=== PATIENT | male | born 1985 | race Caucasian/White ===

== ENCOUNTER 2019-04-22 15:40 | Emergency (ER) | payer OTHER, SELFPAY ==
--- NOTE | ~2019-04-22 | XR_ITS ---
EXAMINATION: XR chest 2V 04/22/2019 16:10 INDICATION: Right-sided chest pain PROCEDURE: 2 view chest COMPARISON: No prior studies for comparison. FINDINGS: The lungs are clear. The cardiomediastinal silhouette is within normal limits. There are no pleural effusions. There is no pneumothorax suspected. IMPRESSION: 1: NO ACUTE CARDIOPULMONARY DISEASE. Reviewed, dictated and finalized at [facility]. Reviewed, dictated and finalized at location [facility]. [facility]
--- NOTE | 2019-04-22 15:47 | ECG_ITS ---
Measurements Intervals [place] Rate: 60 P: 43 UT: 151 QRS: 5 QRSD: 104 T: -9 QT: 377 QTc: 379 Interpretive Statements SINUS RHYTHM WITH SINUS ARRHYTHMIA BORDERLINE ST-T WAVE ABNORMALITY- INFERIOR LEADS BORDERLINE ECG Electronically Signed On 04-22-2019 18:37:04 DIRECTOR PACKAGING by Lavelle Shelton D.O.
[2019-04-22 15:53] VITALS: BP 118/70; PULSE 69; RESP 16; TEMP 36.8; O2SAT 100
[2019-04-22 16:09] LABS: Basophils Absolute Auto 0.1 K/mm3 (0.0-0.1); Basophils Percent Auto 0.9 % (0.2-1.2); Eosinophils Absolute Auto 0.2 K/mm3 (0-0.3); Eosinophils Percent Auto 2.9 % (0-4.4); Hematocrit 44.2 % (42.0-52.0); Immature Granulocyte Absolute 0.03 K/mm3 (0.00-0.031); Immature Granulocyte Percent A 0.4 % (0-0.5); Lymphocytes Percent Auto 46.8 % (18.3-44.2); Mean Corpuscular HGB Conc 33.9 g/dl (32-36); Mean Corpuscular Hemoglobin 28.2 pg (26-34); Mean Corpuscular Volume 83.2 fl (80-100); Mean Platelet Volume 10.7 fl (7.4-10.4); Monocytes Absolute Auto 0.6 K/mm3 (0.1-0.6); Monocytes Percent Auto 8.3 % (2.6-8.5); Neutrophils Absolute Auto 3.1 K/mm3 (1.3-6.7); Neutrophils Percent Auto 40.7 % (45.5-73.1); Platelet Count Result 300 k/mm3 (150-375); Red Blood Count 5.31 M/mm3 (4.6-6.20); Red Cell Distribution Width 11.6 % (11.5-14.5); White Blood Count 7.7 K/mm3 (4.5-10.0)
[2019-04-22 16:17] LABS: Prothrombin Time 12.6 Seconds (11.1-14.7)
[2019-04-22 16:18] LABS: Partial Thromboplastin Time 27.1 SECONDS (22.3-36.8)
[2019-04-22 16:22] LABS: Blood Urea Nitrogen 15 mg/dL (9-20); Calcium 9.6 mg/dL (8.4-10.2); Carbon Dioxide 27 mmol/L (22-30); Chloride 99 mmol/L (98-107); Estimated CRCL calculation 121 ml/min; Estimated Glomerular Filt Rate > 60; Glucose 93 mg/dL (75-110); Sodium 137 mmol/L (137-145)
[2019-04-22 16:34] LABS: Troponin I < 0.012 ng/mL (0.000-0.034)
[2019-04-22 16:40] VITALS: BP 140/85; PULSE 64; RESP 20; O2SAT 100
--- NOTE | 2019-04-22 18:14 | ED.CHESTPAIN ---
HPI - Chest Pain General Chief Complaint: Chest Pain Stated Complaint: CP Time Seen by Provider: 04/22/19 17:51 Source: patient and RN notes reviewed Mode of arrival: ambulatory Limitations: no limitations History of Present Illness HPI narrative: Pt is a 34 y/o male who presents to the ED with c/o rt sided chest pain starting around 10:30 AM this morning. He notes that he has a Hx of sleep apnea, and states that he uses a CPAP at night. Pt notes that he developed pain in the rt side of his chest shortly after taking a deep breath and stretching this morning. He describes his pain as dull, and notes that deep breathing aggravates his pain. Pt states that his pain has alleviated since it first began, and currently rates his pain at 1/10. He denies any cough, SOB, diaphoresis, fever, or other symptoms. MD complaint: chest pain Onset (ago): hour(s) (7) Onset: during rest Pain location: right chest Pain scale (0-10): 1 Quality: dull Exacerbating factors: other (deep breathing) Associated symptoms: other (none) Related Data Home Medications Medication Instructions Recorded Confirmed No Home Medications 04/22/19 04/22/19 Allergies Allergy/AdvReac Type Severity Reaction Status Date / Time No Known Allergies Allergy Verified 04/22/19 16:38 Review of Systems Review of Systems: All systems reviewed & are unremarkable except as noted in HPI and below Constitutional: Constitutional: Denies chills, Denies fever(s), Denies headache(s) and Denies weakness Cardiovascular: Cardiovascular: Reports chest pain (rt sided chest pain) and Denies diaphoresis Respiratory: Respiratory: Denies cough and Denies dyspnea Gastrointestinal: Gastrointestinal: Denies abdominal pain, Denies diarrhea, Denies nausea and Denies vomiting PMFSH Past Medical History Medical History Sleep apnea uses CPAP at night Surgical History Surgical History No significant past surgical history Family History Family History (Updated 12/20/17 @ 11:56 by DOCTOR UNKNOWN) Grandparent Family history of coronary artery disease Social History Social History Smoking status: Never smoker Alcohol intake: never Gender identity (if verbalized by the patient): Male Exam Const: General: no acute distress and well developed Orientation/consciousness: oriented to person, oriented to place, oriented to time and patient oriented x3 HENMT: Head: normocephalic Chest: Chest palpation & inspection: normal inspection of the chest and no tenderness Resp: Effort & Inspection: normal respiratory effort Auscultation: clear to auscultation bilaterally Cardio: Rate: regular rate Rhythm: regular rhythm GI: GI Palp: No abdominal tenderness and Yes Soft to palpation Skin: General skin exam: normal color and turgor normal Neuro: General: oriented to person, oriented to place, oriented to time and patient oriented x3 Cognition (Neuro): normal cognition Extrem: General: normal to inspection, full ROM and no pedal edema Psych: Appearance: grossly normal Mental Status: mental status grossly normal Affect: normal affect Course Vital Signs Vital signs: Vital Signs Temperature 36.8 C 04/22/19 15:53 Pulse Rate 69 04/22/19 15:53 Respiratory Rate 16 04/22/19 15:53 Blood Pressure 118/70 04/22/19 15:53 Pulse Oximetry 100 04/22/19 15:53 Temperature 36.8 C 04/22/19 15:53 Pulse Rate 75 04/22/19 19:26 Respiratory Rate 21 H 04/22/19 19:26 Blood Pressure 125/87 04/22/19 19:26 Pulse Oximetry 97 04/22/19 19:26 MDM - Chest Pain Lab Data Result diagrams: 04/22/19 16:01 04/22/19 16:01 Labs: Lab Results 04/22/19 04/22/19 04/22/19 Range/Units 16:01 16:01 16:01 WBC 7.7 (4.5-10.0) K/mm3 RBC 5.31 (4.6-6.20) M/mm3 Hgb 15.0 (14.0-18.0)
[2019-04-22 18:55] LABS: D Dimer 0.27 ug/mL (<0.48)
[2019-04-22 19:26] VITALS: BP 125/87; PULSE 64; PULSE 75; RESP 21; O2SAT 97
[2019-04-22 19:44] LABS: Troponin I < 0.012 ng/mL (0.000-0.034)
[2019-04-22 20:28] VITALS: BP 126/87; PULSE 75; RESP 18; O2SAT 97
== END 2019-04-22 20:28 | disposition home or self-care (01) ==
PROVIDERS: Emergency Provider Emergency Medicine; PCP Internal Medicine
DX: R07.89 Other chest pain (principal); G47.30 Sleep apnea, unspecified; R94.31 Abnormal electrocardiogram [ECG] [EKG]
CPT/HCPCS: 36415; 71046; 80048; 84484; 85025; 85380; 85610; 85730; 93005; 99284

== ENCOUNTER → 2021-11-03 13:51 | Outpatient (CLI) | payer OTHER, SELFPAY ==
--- NOTE | ~2021-11-03 | US_ITS ---
EXAMINATION: US soft tissue groin LT DATE: 11/03/2021 14:21 INDICATION: Low abdominal pain, unspecified. TECHNIQUE: Multiple grayscale and Doppler ultrasound images of the left inguinal region were obtained . COMPARISON: None FINDINGS: There is no abnormal mass or lymphadenopathy in left inguinal region. There is a left ingui nal hernia. IMPRESSION: 1. Left inguinal hernia. Reviewed, dictated and finalized at location [facility]. IMPRESSION: 1. Left inguinal hernia.
== END ==
PROVIDERS: PCP Internal Medicine; Visit Provider Nurse Practitioner
DX: R10.30 Lower abdominal pain, unspecified (principal); K40.90 Unilateral inguinal hernia, without obstruction or gangrene, not specified as recurrent
CPT/HCPCS: 76882

== ENCOUNTER 2022-02-19 14:53 | Outpatient (CLI) | payer OTHER, SELFPAY | END 2022-02-19 14:54 | disposition home or self-care (01) | LOC: ANHSURGERY 14:57 | PROVIDERS: PCP Nurse Practitioner; Visit Provider Surgery | DX: Z01.818 Encounter for other preprocedural examination (principal); K40.90 Unilateral inguinal hernia, without obstruction or gangrene, not specified as recurrent | CPT/HCPCS: 36415; 86850; 86900; 86901 ==

== ENCOUNTER 2022-03-04 00:22 | Day surgery (SDC) | payer OTHER, SELFPAY ==
[2022-02-19 12:54] VITALS: BMI 34.4
--- NOTE | 2022-02-19 13:02 | PC.NURSE ---
Report to the Outpatient Waiting Room, entrance under the green pavilion located off [address], at time 6:00 on date 03/04/22. Planned Procedure Time: 7:30. Time changes happen often and if your time is changed the preop area will call you the afternoon before. - You and your visitor will be asked to self-screen and do not enter if you have any COVID symptoms. - Only one visitor is requested with a max of two and NO children visitors are allowed at this time. - The patient visitor may be requested to leave or wait in car when not with patient due to distancing restrictions. - A mask is optional within the hospital. Patients may have clear liquids (water, carbonated beverages, clear teas, apple juice) until 3 hours prior to surgery (4:30) with a maximum of 20 ounces. - No food from midnight until time of surgery Take the following medications with a SIP of water the morning of surgery: DIAZEPAM IF NEEDED Medications to discontinue per physician: N/A Date to take last dose: N/A Please no make-up, nail italian, hairspray, perfume, deodorant, or body powder the day of surgery. No jewelry (including any body piercings) or valuables the day of surgery, leave them at home. Please take a shower or bath the night before, or the morning of, surgery with an antibacterial soap (HIBICLENS). Wear comfortable, loose fitting clothing. - Jewelry must be removed prior to entering the operating room. Rings and piercings that are not removed may be cut off. - The hospital will not accept responsibility for valuables. - Please leave all valuables, including medications, at home the day of surgery. If you are going home after surgery, a licensed route cdl driver must drive you home. - NO public transportation without another adult if you receive anesthesia. - We recommend that an adult stay with you for 24 hours following discharge. - We also recommend that you do not drive, make important decision, drink alcoholic beverages, or take any drugs that were not prescribed by your health care provider for at least 24 hours after your discharge time. Follow any additional instructions given to you from your surgeon. If you or anyone in your household have experienced Covid symptoms in the past week, please notify your surgeon or the nurse liaison at the phone number below for possible testing. Telephone instructions given to PT - MARIE POWELL and asked if any additional questions and then verbalized understanding. Patient advised to call surgeon office or pre surgery nurse liaison [phone] if any additional questions.
--- NOTE | 2022-03-03 13:43 | P.PNAN_ITS ---
Anes - Initial Pre Proc Eval Procedure: Operation Date: 03/04/22 07:30 Proposed Procedures p Laparoscopic Left Inguinal Hernia Repair with Mesh, Davinci Assisted - Zafar Mckee DO Date/Time: 03/03/22 13:43 Surgeon: Zafar Mckee DO Pre Op Diagnosis: left inguinal hernia Patient Data Age: 37 Gender: M Height: 1.7 m Weight: 99.8 kg Allergies Allergy/AdvReac Type Severity Reaction Status Date / Time No Known Allergies Allergy Verified 03/04/22 06:35 Home Medications Medication Instructions Recorded Confirmed Type diazepam 5 mg tablet 5 mg PO DAILY PRN anxiety #30 tabs 11/05/21 03/04/22 Rx Patient hx anesthesia problems: none Family hx anesthesia problems: none Results Review: All pre-operative results and documents have been reviewed as part of the pre-op erative evaluation. [facility] Past Medical History Medical History (Updated 03/03/22 @ 13:44 by Nick Jeffries MD) Anxiety BMI 32.0-32.9,adult Left inguinal hernia Narcolepsy Narcolepsy Obesity (BMI 30-39.9) Sleep apnea uses CPAP at night Surgical History Surgical History No significant past surgical history Family History Family History Grandparent Family history of coronary artery disease Malignant neoplasm of prostate Other Malignant neoplasm of prostate Father Thrombosis bilateral legs prior to COVID Kidney stones Social History Social History Social History: with 4 kids; Calista, Grady, Faye and Houston; loves his job at the [employer], works rotating shifts over 4 weeks. 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 Gender identity (if verbalized by the patient): Male Sexual Orientation (if Verbalized by the Patient): Straight or Heterosexual Spiritual care concerns: No Anes - Eval Final PreProcedure Day of Procedure 12/13/22 13:43 Patient weight: obese Heart: regular rate and rhythm Lungs: clear to auscultation and normal air movement Airway: Mallampati scale class II Neurological: alert and oriented Last oral intake: >/= 8 hours ASA classification: II Emergent: no Anesthetic plan: proceed Anesthesia type and monitoring: general ETT Results Review: All pre-operative results and documents have been reviewed as part of the pre- operative evaluation. Informed Consent: The patient's anesthetic plan and its attendant risks and benefits were discussed with the patient/family/POA. Questions were solicited and answers provided to the satisfaction of the patient/family/POA.
[2022-03-04] VITALS (11 sets, daily range): BP systolic 109–135; BP diastolic 57–80; PULSE 64–90; RESP 12–20; TEMP 36.7; O2SAT 96–100
[2022-03-04] MEDS: ACETAMINOPHEN 500 MG TABLET 1000 MG PO (06:37)
[2022-03-04] MEDS: LACTATED RINGERS 1,000 ML 30 ML IV CONT ×2 (06:45→08:50)
[2022-03-04] MEDS: KETOROLAC 15 MG/ML VIAL (*BKC) IV PUSH (06:52)
--- NOTE | 2022-03-04 07:12 | PM.IMHP ---
H&P: HPI History of Present Illness Date/Time: 03/04/22 07:12 Chief Complaint: Left inguinal hernia Narrative: 37 yo man presents for left inguinal hernia repair. He denies any changes since last seen in office. Review of Systems Review of Systems: All systems reviewed & are unremarkable except as noted in HPI and below Constitutional: Constitutional: Denies chills, Denies fever(s), Denies headache(s) and Denies weight loss Eyes: Eyes: Denies change in vision ENT: Denies dizziness, Denies headache(s), Denies neck mass and Denies throat swelling Cardiovascular: Cardiovascular: Denies chest pain, Denies lightheadedness and Denies dyspnea Respiratory: Respiratory: Denies cough, Denies dyspnea and Denies wheezing Gastrointestinal: Gastrointestinal: Denies abdominal pain, Denies change in bowel habits, Denies nausea and Denies vomiting Genitourinary: Genitourinary: Denies hematuria and Denies dysuria Musculoskeletal: Musculoskeletal: Reports as per HPI Integumentary/Breasts: Skin/Breast: Reports as per HPI Neurologic: Denies dizziness and Denies headache(s) Allergic/Immunologic: Allergic/Immunologic: Denies throat swelling and Denies wheezing [facility] Past Medical History Medical History (Updated 03/03/22 @ 13:44 by Nick Jeffries MD) Anxiety BMI 32.0-32.9,adult Left inguinal hernia Narcolepsy Narcolepsy Obesity (BMI 30-39.9) Sleep apnea uses CPAP at night Surgical History Surgical History No significant past surgical history Family History Family History Grandparent Family history of coronary artery disease Malignant neoplasm of prostate Other Malignant neoplasm of prostate Father Thrombosis bilateral legs prior to COVID Kidney stones Social History Social History Social History: with 4 kids; Calista, Grady, Faye and [place]; loves his job at the [employer], works rotating shifts over 4 weeks. 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 [employer] Gender identity (if verbalized by the patient): Male Sexual Orientation (if Verbalized by the Patient): Straight or Heterosexual Spiritual care concerns: No Meds Home Medications and Allergies Home Medications Medication Instructions Recorded Confirmed Type diazepam 5 mg tablet 5 mg PO DAILY PRN anxiety #30 tabs 11/05/21 03/04/22 Rx Allergies Allergy/AdvReac Type Severity Reaction Status Date / Time No Known Allergies Allergy Verified 03/04/22 06:35 Exam Const: General: no acute distress and alert Orientation/consciousness: patient oriented x3 HENMT: Head: normocephalic and atraumatic Ears: hearing grossly normal bilaterally Face/Nose/Sinus: Normal nares present Mouth: Yes Normal oral and palatal mucosa present Eyes: Periorbital: periorbital findings normal Sclera: sclerae normal EOM: EOMs intact bilaterally Neck: Neck: normal visual inspection, no lymphadenopathy and trachea midline Chest: Chest palpation & inspection: normal inspection of the chest Resp: Effort & Inspection: normal respiratory effort Auscultation: clear to auscultation bilaterally Cardio: Jugular venous distension: no JVD Rate: regular rate Rhythm: regular rhythm Heart sounds: S1 normal heart sound present and S2 normal heart sound present Peripheral pulses: Peripheral pulses 2+ throughout GI: Inspection: normal to inspection GI Palp: Yes Soft to palpation, No Tenderness to palpation present (GI), No Guarding due to palpation present (GI) and No Rebound tenderness present Percussi
--- NOTE | 2022-03-04 07:13 | WPDHPUPDATE1 ---
History and Physical Update Update Date/Time: 03/04/22 07:13 History and Physical has been reviewed, including an updated exam of the patient. There are NO changes in the patient's condition. Risks, benefits, and alternatives have been discussed and questions answered. Patient agrees to proceed with procedure.
[2022-03-04] MEDS: ceFAZolin 2 GM/D5W 50 ML 2 GM/50 ML BAG IVPB (07:30)
[2022-03-04] MEDS: BUPIVACAINE/EPINEPHRINE 0.5% 10 ML VIAL 30 ML INFILTRATE (08:04)
--- NOTE | 2022-03-04 08:40 | W.PM.PROC2 ---
Procedure Note - Detailed Date of Procedure 03/04/22 Pre-op Diagnosis left inguinal hernia Post-op Diagnosis Same (Indirect left inguinal hernia) Procedure Performed Laparoscopic left inguinal hernia repair with mesh, da Kathy assisted Surgeon Zafar Mckee, Anesthesia General and Local (0.5% bupivacaine with epinephrine) Indications This is a 37-year-old man who is complaining of left groin pain. He denied a palpable bulge but continued to have left groin pain with activity. An ultrasound was performed which showed evidence of a left inguinal hernia. He had a small weakness palpable on exam on the left side but there was no sign of a right inguinal hernia. Discussions were made with the patient about treatment options and decision was made to proceed with robotic assisted laparoscopic left inguinal hernia repair with mesh. Findings Laparoscopic left inguinal hernia repair was performed. The patient was found to have a very small indirect left inguinal hernia. There was no evidence of right inguinal hernia. A robotic transabdominal preperitoneal approach was utilized for the left inguinal hernia repair. Once a wide enough preperitoneal pocket was created, I placed a large left Bard 3DMax mid mesh overlying the entire left myopectineal orifice. Description of Procedure Procedure as well as risks, benefits, and alternatives were discussed with the patient. Written consent was obtained and placed in chart prior to procedure. Patient was brought back to surgical suite. He was placed supine on operating table. Time-out was done to confirm patient and procedure. He was then intubated by Anesthesia Department. His abdomen was prepped and draped in sterile fashion using chlorhexidine prep. 0.5% bupivacaine with epinephrine was infiltrated at each location for incision. An 8 mm incision was made in the left lateral abdomen, and a 5 mm Optiview trocar was advanced through the abdominal layers under direct visualization. Once inside the abdominal cavity, carbon dioxide insufflation was used to create a pneumoperitoneum. A camera was inserted and the abdominal cavity was inspected. The patient was placed in slight Trendelenburg position. An 8 millimeter incision was made on the right lateral abdomen and an 8 millimeter trocar was inserted under direct visualization. Another 8 millimeter incision was made just superior to the umbilicus and an 8 millimeter trocar was inserted under direct visualization. The 5 mm port was then removed and this was replaced with another 8 mm robotic port. The robotic arms were brought up to the patient's bedside and secured to the ports. The camera and instruments were inserted. I then moved over to the robotic console and took control of the camera and instruments. After careful inspection of the abdominal cavity, I began scoring the peritoneum along the left lower quadrant using scissors with electrocautery. The preperitoneal plane was entered and this was carefully dissected caudally along the inferior epigastric vessels. Careful dissection with scissors with electrocautery and blunt dissection was used to continue this dissection. I dissected far enough laterally to allow for mesh placement, and also dissected medially to identify the pubic arch and Jorge Alebrto's ligament. The hernia sac was identified and carefully dissected posteriorly. The cord contents were also identified and the peritoneum was carefully dissected far enough posteriorly to allow for mesh placement. Once an adequate pocket was created, I then placed the mesh within the preperitoneal pocket and carefully unfolded it. The mesh was centered on the hernia defect with adequate overlap circumferentially. The inferior edge of the mesh was inspected to ensure that it was far enough away from the peritoneal edge. The mesh appeared in proper position overlying the entire myopectineal orifice. The mesh was secured using 3-0 Vicryl simple interrupted sutures i
[2022-03-04] MEDS: oxyCODONE HCL (*CRX) 5 MG TAB IR PO (10:14)
== END 2022-03-04 11:38 | disposition home or self-care (01) ==
PROVIDERS: PCP Nurse Practitioner; Visit Provider Surgery
PROC: 8E0Y4CZ Robotic Assisted Procedure of Lower Extremity, Percutaneous Endoscopic Approach (ICD-10-PCS; CPT 49650; principal; 2022-03-04 07:30)
DX: K40.90 Unilateral inguinal hernia, without obstruction or gangrene, not specified as recurrent (principal); G47.30 Sleep apnea, unspecified; F41.9 Anxiety disorder, unspecified; G47.419 Narcolepsy without cataplexy; E66.9 Obesity, unspecified; Z68.34 Body mass index [BMI] 34.0-34.9, adult
CPT/HCPCS: 49650; S2900; 36415; 86850; 86900; 86901; A9270; C1781; J0690; J1100; J1170; J1885; J2250; J2405; J2704; J2710; J3010; J7120

== ENCOUNTER 2022-09-24 10:55 | Emergency (ER) | payer OTHER, SELFPAY ==
--- NOTE | ~2022-09-24 | XR_ITS ---
EXAMINATION: XR sacrum coccyx min 2V DATE: 09/24/2022 11:47 INDICATION: Sacrococcygeal pain. Fall down stairs. TECHNIQUE: 3 views of the sacrum and coccyx were obtained. COMPARISON: None. FINDINGS: Bone alignment is normal. No fracture. The sacroiliac joints are normal. IMPRESSION: 1. No fracture. Reviewed, dictated and finalized at location A. IMPRESSION: 1. No fracture.
[2022-09-24 11:02] VITALS: BP 133/78; PULSE 79; RESP 16; TEMP 36.8; O2SAT 99
[2022-09-24 11:07] VITALS: BP 133/78; PULSE 79; RESP 16; TEMP 36.8; O2SAT 99
--- NOTE | 2022-09-24 11:11 | ED.FALL ---
HPI - Fall General Chief Complaint: Fall Stated Complaint: Back Butt Pain Time Seen by Provider: 09/24/22 11:11 Source: patient Mode of arrival: ambulatory Limitations: no limitations History of Present Illness HPI Narrative: 37 yo M presents with c/o pain to sacrum for 1 wk. States he fell down several stairs. had pain to L ankle and R wrist but has resolved. Is concerned that coccyx is fracture. ambulatory with steady gait. appears to be in pain when moving from standing to sitting position. taking ibuprofen as needed. Denies hitting head, no LOC. All systems reviewed and negative except as noted above. Related Data Home Medications Medication Instructions Recorded Confirmed No Home Medications 09/24/22 09/24/22 Allergies Allergy/AdvReac Type Severity Reaction Status Date / Time No Known Allergies Allergy Verified 09/24/22 11:07 Review of Systems Review of Systems: CONSTITUTIONAL: Denies fever, chills, or sweats. EYES: Denies visual changes, redness, or discharge. ENT: Denies rhinorrhea, congestion, sore throat, or otalgia. CARDIOVASCULAR: Denies chest pain, palpitations, or edema. RESPIRATORY: Denies cough or dyspnea. GASTROINTESTINAL: Denies abdominal pain, nausea, vomiting, or diarrhea. GENITOURINARY: Denies dysuria or hematuria. SKIN: Denies rash or itching. MUSCULOSKELETAL: Denies joint pain, or myalgia. Reports pain to sacrum. NEUROLOGIC: Denies headache, numbness, or weakness. PSYCHIATRIC: Denies anxiety or depression. All other systems reviewed are negative, except as documented in HPI. [facility], [facility] Past Medical History Medical History (Updated 09/24/22 @ 12:14 by Marina Zimmer NP) Anxiety BMI 32.0-32.9,adult Left inguinal hernia Narcolepsy Narcolepsy Obesity (BMI 30-39.9) Sleep apnea uses CPAP at night Surgical History Surgical History (Updated 03/17/22 @ 09:19 by Cherise Jeffries) H/O inguinal hernia repair laparoscopic left inguinal hernia repair w/mesh, daVinci assisted 03/04/22 No significant past surgical history Family History Family History Grandparent Family history of coronary artery disease Malignant neoplasm of prostate Other Malignant neoplasm of prostate Father Thrombosis bilateral legs prior to COVID Kidney stones Social History Social History Social History: with 4 kids; Calista, Grady, Faye and [place]; loves his job at the [employer], works rotating shifts over 4 weeks. 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 There is no relevant family history pertinent to the presenting complaint. Exam Narrative: GENERAL: This is a well-nourished, well-developed patient, in no apparent distress. HEAD: normocephalic, atraumatic. EYES: PERRL. Sclera clear/white. Vision is grossly intact. EARS: External ears normal NOSE: External nose normal NECK: Neck supple, non-tender without lymphadenopathy, masses or thyromegaly. CARDIOVASCULAR: Regular rate and rhythm without murmurs, gallops, or rubs. RESPIRATORY: Clear to auscultation. Breath sounds equal bilaterally. No wheezes, rales, or rhonchi. SKIN: warm, Dry, intact with no suspicious lesions or rash, good texture and turgor. NEURO: awake, alert, and oriented to pers
== END 2022-09-24 12:18 | disposition home or self-care (01) ==
PROVIDERS: Emergency Provider Nurse Practitioner Family; PCP Internal Medicine
DX: S30.0XXA Contusion of lower back and pelvis, initial encounter (principal); W10.9XXA Fall (on) (from) unspecified stairs and steps, initial encounter; E66.9 Obesity, unspecified; Z68.34 Body mass index [BMI] 34.0-34.9, adult; Z47.33 Aftercare following explantation of knee joint prosthesis
CPT/HCPCS: 72220; 99213; G0463

== ENCOUNTER 2022-09-29 12:45 | Emergency (ER) | payer OTHER, SELFPAY ==
--- NOTE | ~2022-09-29 | CT_ITS ---
EXAMINATION: CT brain wo con INDICATION: Hallucinations and headache COMPARISON: None TECHNIQUE: Standard unenhanced head CT. The dose-length product (DLP) was 605.33 mGy-cm. The mA was a djusted according to patient size. Iterative reconstruction technique was employed. FINDINGS: There is no intracranial hemorrhage, acute infarction, or abnormal mass lesion. The ventric les are normal. There is no abnormal mass effect or midline shift. The alexander-white matter differentiat ion is normal. The basal cisterns are patent. The orbits are normal. The paranasal sinuses, mastoids and calvarium are normal. IMPRESSION: 1. No acute intracranial abnormality. Reviewed, dictated and finalized at location L.
[2022-09-29 12:49] VITALS: BP 119/88; PULSE 80; RESP 16; TEMP 36.8; O2SAT 100
[2022-09-29 15:16] LABS: Appearance Urine Clear (Clear); Bilirubin Urine Negative (Negative); Blood Urine Negative (Negative); Color Urine Yellow (Yellow); Glucose Urine UA Negative (Negative); Ketones Urine Negative (Negative); Leukocyte Esterase Ur Negative LEU/UL (Negative); Nitrate Urine Negative (Negative); Protein Urine Negative (Negative); pH Urine 6.5 (5.0-9.0)
[2022-09-29 15:17] LABS: Basophils Absolute Auto 0.1 K/mm3 (0.0-0.1); Eosinophils Absolute Auto 0.3 K/mm3 (0-0.3); Eosinophils Percent Auto 4.5 % (0-4.4); Hemoglobin 14.9 g/dL (14.0-18.0); Immature Granulocyte Absolute 0.04 K/mm3 (0.00-0.031); Immature Granulocyte Percent A 0.5 % (0-0.5); Lymphocytes Absolute Auto 3.06 K/mm3 (0.9-3.2); Mean Corpuscular HGB Conc 33.9 g/dl (32-36); Mean Corpuscular Hemoglobin 28.6 pg (26-34); Mean Corpuscular Volume 84.5 fl (80-100); Mean Platelet Volume 10.4 fl (7.4-10.4); Monocytes Absolute Auto 0.6 K/mm3 (0.1-0.6); Monocytes Percent Auto 8.5 % (2.6-8.5); Neutrophils Absolute Auto 3.2 K/mm3 (1.3-6.7); Neutrophils Percent Auto 43.5 % (45.5-73.1); Platelet Count Result 295 k/mm3 (150-375); Red Blood Count 5.21 M/mm3 (4.6-6.20); Red Cell Distribution Width 11.5 % (11.5-14.5); White Blood Count 7.3 K/mm3 (4.5-10.0)
[2022-09-29 15:24] LABS: Add Urine Microscopic? NO
[2022-09-29 15:33] LABS: Acetaminophen < 10 ug/mL (10-30); Ethanol < 10 mg/dL (<10); Salicylate < 1.0 mg/dL (2-20)
[2022-09-29 15:35] LABS: Alanine Aminotransferase 169 U/L (6-50); Albumin Level 4.9 g/dL (3.5-5.1); Alkaline Phosphatase 53 U/L (38-126); Anion Gap 5 mmol/L (8-16); Aspartate Amino Transferase 76 U/L (17-59); Bilirubin,Total 0.9 mg/dL (0.2-1.3); Blood Urea Nitrogen 11 mg/dL (9-20); Calcium 9.3 mg/dL (8.4-10.2); Carbon Dioxide 30 mmol/L (22-30); Chloride 104 mmol/L (98-107); Estimated CRCL calculation 127 ml/min; Estimated Glomerular Filt Rate > 60; Glucose 94 mg/dL (65-110); Potassium 3.9 mmol/L (3.4-5.0); Sodium 139 mmol/L (137-145)
[2022-09-29 15:43] LABS: Amphetamine Screen Urine Negative (Negative); Barbiturate Screen Urine Negative (Negative); Benzodiazepines Screen Urine Negative (Negative); Cannabinoid Screen Urine Negative (Negative); Cocaine Screen Urine Negative (Negative); Methadone Screen Urine Negative (Negative); Opiate Screen Urine Negative (Negative); Phencyclidine Screen Urine Negative (Negative)
[2022-09-29 16:17] VITALS: BP 141/76; PULSE 84; RESP 16; O2SAT 100
--- NOTE | 2022-09-29 16:29 | ED.PSYCH ---
HPI - Psych General Chief Complaint: Psychiatric Symptoms Stated Complaint: HALLUCINATION AND HEADACHE YESTERDAY Time Seen by Provider: 09/29/22 14:14 History of Present Illness HPI Narrative: This is a 37-year-old male with past history of narcolepsy, who presents to the emergency department complaining of hallucinations and headaches yesterday that have since resolved. 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 He states he has never experienced symptoms like this before. After going home, he had a sharp, diffuse headache without associated nausea or vomiting that improved with sleep. He has not had similar symptoms since then. He denies any known exposure to hazardous materials, drug use or alcohol use. Related Data Home Medications Medication Instructions Recorded Confirmed No Home Medications 09/24/22 09/24/22 Allergies Allergy/AdvReac Type Severity Reaction Status Date / Time No Known Allergies Allergy Verified 09/29/22 13:18 Review of Systems Review of Systems: CONSTITUTIONAL: Denies fever, chills, or sweats. CARDIOVASCULAR: Denies chest pain, palpitations, or edema. RESPIRATORY: Denies cough or dyspnea. GASTROINTESTINAL: Denies abdominal pain, nausea, vomiting, or diarrhea. GENITOURINARY: Denies dysuria or hematuria. SKIN: Denies rash or itching. MUSCULOSKELETAL: Denies back pain, joint pain, or myalgia. NEUROLOGIC: Headache, resolved denies numbness, dizziness, or weakness. PSYCHIATRIC: Hallucinations and paranoia, resolved denies anxiety or depression. Denies suicidal or homicidal ideations. [facility] Past Medical History Medical History Anxiety BMI 32.0-32.9,adult Left inguinal hernia Narcolepsy Narcolepsy Obesity (BMI 30-39.9) Sleep apnea uses CPAP at night Surgical History Surgical History H/O inguinal hernia repair laparoscopic left inguinal hernia repair w/mesh, daVinci assisted 03/04/22 No significant past surgical history Family History Family History Grandparent Family history of coronary artery disease Malignant neoplasm of prostate Other Malignant neoplasm of prostate Father Thrombosis bilateral legs prior to COVID Kidney stones Social History Social History Social History: with 4 kids; Calista, Grady, Faye and [place]; loves his job at the [employer], works rotating shifts over 4 weeks. 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 HEAD: Normocephalic, atraumatic. EYES: PERRLA and EOMI. ENT: Nares clear, no rhinorrhea or epistaxis. Mucous membranes moist. Oropharynx without tonsillar hypertrophy exudate or other lesions. NECK: Supple. No adenopathy or masses. No JVD CHEST: Clear to auscultation. No respiratory distress. No wheezes rales or rhonchi HEART: Regular rate and rhythm. No murmur heard. Normal peripheral pulses. ABDOMEN: Soft, nontender, nondistended, normal active bowel sounds. EXTREMITIES: Normal range of motion. No edema. SKIN: Warm, dry
== END 2022-09-29 16:39 | disposition home or self-care (01) ==
PROVIDERS: Emergency Provider Preventive Medicine Aerospace Medicine; PCP Internal Medicine
DX: R44.1 Visual hallucinations (principal); F41.9 Anxiety disorder, unspecified; G47.419 Narcolepsy without cataplexy; G47.30 Sleep apnea, unspecified
CPT/HCPCS: 36415; 70450; 80053; 80307; 81003; 84443; 85025; 99284

== ENCOUNTER → 2023-01-29 09:37 | Outpatient (CLI) | payer OTHER, SELFPAY ==
--- NOTE | ~2023-01-29 | MMUS_ITS ---
EXAMINATION: MM diagnostic nishi LT w leora, US breast LT limited HISTORY: Palpable left breast lump TECHNIQUE: Additional 3-D tomosynthesis images of the left breast were performed and synthetic 2-D im ages were generated. Comparison right MLO view performed. CAD analysis was submitted and interpreted. High resolution Limited left breast ultrasound was performed. COMPARISON: None BREAST PARENCHYMAL COMPOSITION: Breast composition is almost entirely fatty FINDINGS: MAMMOGRAPHIC FINDINGS: There are no suspicious masses, calcifications or architectural distortion in either breast to sugges t malignancy. ULTRASOUND: Limited left breast ultrasound: Normal heterogeneous echotexture without focal solid or cystic mass. IMPRESSION: 1. No evidence for malignancy in the left breast. BI-RADS Category 1: Negative Reviewed, dictated and finalized at location A. 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 No evidence for malignancy in the left breast. BI-RADS Category 1: Negative
== END ==
PROVIDERS: PCP Clinical Nurse Specialist; Visit Provider Clinical Nurse Specialist
DX: R22.2 Localized swelling, mass and lump, trunk (principal); N63.20 Unspecified lump in the left breast, unspecified quadrant
CPT/HCPCS: 76642; 77061; 77065; G0279

== ENCOUNTER 2023-08-29 02:24 | Emergency (ER) | payer OTHER, SELFPAY ==
[2023-08-29 02:21] VITALS: BP 122/76; PULSE 104; RESP 16; TEMP 37.6; O2SAT 97
[2023-08-29] MEDS: diphenhydrAMINE HCl INJ 50 MG/ML VIAL 25 MG IV PUSH (03:21)
[2023-08-29] MEDS: KETOROLAC 15 MG/ML VIAL (*BKC) IV PUSH (03:22)
[2023-08-29 03:23] LABS: Basophils Percent Auto 0.5 % (0.2-1.2); Eosinophils Percent Auto 0.1 % (0-4.4); Hematocrit 43.2 % (42.0-52.0); Immature Granulocyte Absolute 0.04 K/mm3 (0.00-0.031); Immature Granulocyte Percent A 0.5 % (0-0.5); Lymphocytes Absolute Auto 0.77 K/mm3 (0.9-3.2); Lymphocytes Percent Auto 10.2 % (18.3-44.2); Mean Corpuscular HGB Conc 34.7 g/dl (32-36); Mean Corpuscular Hemoglobin 28.8 pg (26-34); Mean Corpuscular Volume 82.9 fl (80-100); Mean Platelet Volume 10.4 fl (7.4-10.4); Monocytes Absolute Auto 0.7 K/mm3 (0.1-0.6); Monocytes Percent Auto 9.4 % (2.6-8.5); Neutrophils Percent Auto 79.3 % (45.5-73.1); Platelet Count Result 223 k/mm3 (150-375); Red Blood Count 5.21 M/mm3 (4.6-6.20); Red Cell Distribution Width 11.6 % (11.5-14.5); White Blood Count 7.6 K/mm3 (4.5-10.0)
[2023-08-29] MEDS: PROCHLORPERAZINE EDISYLATE 10 MG/2 ML VIAL IV PUSH (03:23)
[2023-08-29] MEDS: SODIUM CHLORIDE 0.9% IV 50 ML 200 ML (03:23)
--- NOTE | 2023-08-29 03:25 | ED.GENADULT ---
HPI - General Adult General Chief complaint: Unspecified Stated complaint: FEVER, EL, BODYACHES AFTER VACCINE YESTERDAY Time Seen by Provider: 08/29/23 02:52 History of Present Illness HPI narrative: patient had covid booster on Wednesday, and on Wednesday started feeling fevers, all over body aches, with headache and pain in his legs. he tried taking a [place] which did not help. also reporting some nausea. Related Data Allergies Allergy/AdvReac Type Severity Reaction Status Date / Time No Known Allergies Allergy Verified 08/29/23 02:26 Review of Systems Review of Systems: All systems reviewed & are unremarkable except as noted in HPI and below PMFSH Past Medical History Medical History Anxiety BMI 32.0-32.9,adult Left inguinal hernia Narcolepsy Narcolepsy Obesity (BMI 30-39.9) Sleep apnea uses CPAP at night Surgical History Surgical History H/O inguinal hernia repair laparoscopic left inguinal hernia repair w/mesh, daVinci assisted 03/04/22 No significant past surgical history Family History Family History Grandparent Family history of coronary artery disease Malignant neoplasm of prostate Other Malignant neoplasm of prostate Father Thrombosis bilateral legs prior to COVID Kidney stones Social History Social History (Updated 01/21/23 @ 14:10 by Meaghan Thomas [facility]) Social History: with 4 kids; Calista, Grady, Faye and [place]; loves his job at the [employer], works rotating shifts over 4 weeks. Caffeine-minimum 1 cup daily, anywhere from 12oz- 1 Liter - soda/tea/coffee Smoking status: Never smoker Alcohol intake: never Substance use: never Substance use type: does not use Lack of Transportation: No Lack of Food: Never True Current Housing: I Have Housing Concerned About Future Housing: No Difficulty Paying Gas/Electric Bills: No Difficulty Paying for Meds: No Currently Unemployed: No Education: Bachelor's Degree Difficulty w/ Childcare or Family Care: No Living arrangements: with family Additional living arrangements comments: Patient is with 4 children Occupation/Education: occupation 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 EYES: EOMI, conjunctiva normal ENT: Hearing grossly intact LUNGS: Nonlabored breathing. HEART: tachycardia ABD: [Soft], [nontender to palpation] EXT: Normal range of motion SKIN: [No rashes or lesions.] NEURO: [Alert and oriented x 3. No gross focal sensory or strength deficits.] PSYCH: Normal affect Course Vital Signs Vital signs: Vital Signs Temperature 99.6 F 08/29/23 02:21 Pulse Rate 104 H 08/29/23 02:21 Respiratory Rate 16 08/29/23 02:21 Blood Pressure 122/76 08/29/23 02:21 Pulse Oximetry 97 08/29/23 02:21 Oxygen Delivery Room Air 08/29/23 02:21 Temperature 99.6 F 08/29/23 02:21 Pulse Rate 88 08/29/23 04:26 Respiratory Rate 15 08/29/23 04:26 Blood Pressure 112/70 08/29/23 04:26 Pulse Oximetry 97 08/29/23 04:26 Oxygen Delivery Room Air 08/29/23 02:21 Medical Decision Making [facility] Narrative Medical decision making narrative: Patient presenting with body aches and generalized malaise after his COVID booster, he appears sad in the bed but otherwise nontoxic, labs within acceptable limits, he is given nausea medicine and pain medicine and on re-evaluation states that he is feeling much better, symptoms essen
[2023-08-29 03:32] LABS: Alanine Aminotransferase 56 U/L (6-50); Albumin Level 4.6 g/dL (3.5-5.1); Alkaline Phosphatase 64 U/L (38-126); Anion Gap 9 mmol/L (4-12); Aspartate Amino Transferase 28 U/L (17-59); Bilirubin,Total 1.2 mg/dL (0.2-1.3); Blood Urea Nitrogen 13 mg/dL (9-20); Calcium 9.4 mg/dL (8.4-10.2); Carbon Dioxide 26 mmol/L (22-30); Chloride 100 mmol/L (98-107); Estimated CRCL calculation 113 ml/min; Estimated Glomerular Filt Rate > 60; Glucose 126 mg/dL (65-110); Potassium 4.1 mmol/L (3.4-5.0); Sodium 135 mmol/L (137-145)
[2023-08-29 04:26] VITALS: BP 112/70; PULSE 88; RESP 15; O2SAT 97
[2023-08-29 05:07] VITALS: BP 110/68; PULSE 80; RESP 17; O2SAT 97
== END 2023-08-29 05:09 | disposition home or self-care (01) ==
PROVIDERS: Emergency Provider Emergency Medicine; PCP Clinical Nurse Specialist
DX: R11.0 Nausea (principal); M79.10 Myalgia, unspecified site; T50.B95A Adverse effect of other viral vaccines, initial encounter; F41.9 Anxiety disorder, unspecified; G47.419 Narcolepsy without cataplexy
CPT/HCPCS: 36415; 80053; 85025; 96361; 96374; 96375; 99284; J0780; J1200; J1885

== ENCOUNTER 2023-12-15 11:49 | Emergency (ER) | payer OTHER, SELFPAY ==
--- NOTE | ~2023-12-15 | US_ITS ---
EXAMINATION: US scrotum doppler DATE: 12/15/2023 13:36 INDICATION: Left groin and testicular pain. TECHNIQUE: Testicular sonogram utilizing grayscale and Doppler COMPARISON: None. FINDINGS: The right testis measures 4.8 x 2.4 x 3.4 cm. The left testis measures 4.7 x 2.4 x 3.2 cm. Symmetric normal grayscale appearance to both testes. There is normal vascular flow to both testes. The right e pididymis is normal with normal vascular flow. The left epididymis is normal with normal vascular courtney w. There is no varicocele or hydrocele. At the left inguinal region of pain there appears be a small inguinal hernia containing a small amount of mobile fat. No evident herniated bowel. IMPRESSION: 1. Small fat-containing left femoral hernia. Otherwise normal scrotal ultrasound. Reviewed, dictated and finalized at location A. IMPRESSION: 1. Small fat-containing left femoral hernia. Otherwise normal scrotal ultrasou nd.
[2023-12-15 11:54] VITALS: BP 129/80; PULSE 60; RESP 18; TEMP 36.3; O2SAT 99
--- NOTE | 2023-12-15 12:45 | PC.NURSE ---
Pt in ultrasound at this time
[2023-12-15 13:52] VITALS: BP 142/86; PULSE 72; RESP 18; O2SAT 99
--- NOTE | 2023-12-15 14:02 | ED.ABDPAIN ---
HPI - Abdominal Pain General Chief Complaint: Abdominal Pain Stated Complaint: left groin pain starting this morning Time Seen by Provider: 12/15/23 12:00 History of Present Illness HPI narrative: 38-year-old male presents to the emergency department for left groin pain for about a week. Patient states the pain is worse when he standing and moving around and better when he is at rest . He has not noticed a bulge to the area. He denies dysuria hematuria, penile discharge or concern for STDs. Patient has a history of left-sided small fat containing indirect inguinal hernia. He underwent laparoscopic left inguinal hernia repair with mesh on 03/04/[address] Mckee. Pt is concerned his hernia has returned. Related Data Allergies Allergy/AdvReac Type Severity Reaction Status Date / Time No Known Allergies Allergy Verified 12/15/23 13:53 Review of Systems Review of Systems: All systems reviewed & are unremarkable except as noted in HPI and below PMFSH Past Medical History Medical History Anxiety BMI 32.0-32.9,adult Left inguinal hernia Narcolepsy Narcolepsy Obesity (BMI 30-39.9) Sleep apnea uses CPAP at night Surgical History Surgical History H/O inguinal hernia repair laparoscopic left inguinal hernia repair w/mesh, daVinci assisted 03/04/22 No significant past surgical history Family History Family History Grandparent Family history of coronary artery disease Malignant neoplasm of prostate Other Malignant neoplasm of prostate Father Thrombosis bilateral legs prior to COVID Kidney stones Social History Social History Social History: with 4 kids; Calista, Grady, Faye and [place]; loves his job at the [employer], works rotating shifts over 4 weeks. Caffeine-minimum 1 cup daily, anywhere from 12oz- 1 Liter - soda/tea/coffee Smoking status: Never smoker Alcohol intake: never Substance use: never Substance use type: does not use Do You Feel Safe in your Home?: Yes Lack of Transportation: No Lack of Food: Never True Current Housing: I Have Housing Concerned About Future Housing: No Difficulty Paying Gas/Electric Bills: No Difficulty Paying for Meds: No Currently Unemployed: No Education: Bachelor's Degree Difficulty w/ Childcare or Family Care: No Living arrangements: with family Additional living arrangements comments: Patient is with 4 children Occupation/Education: occupation 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 HEAD: Normocephalic, atraumatic. ENT: Nares clear, no rhinorrhea or epistaxis. Mucous membranes moist. NECK: Supple. CHEST: Clear to auscultation. No respiratory distress. HEART: Regular rate and rhythm. No murmur heard. Normal peripheral pulses. ABDOMEN: Soft, nontender, nondistended, normal active bowel sounds. : chaperoned by tech Patricia: No palpable hernia in the femoral region. No palpable indirect hernia however there is discomfort when palpating this region. Minimal tenderness to bilateral testicles on palpation. No testicular edema. cremasteric reflex intact parent EXTREMITIES: Normal range of motion. No edema. SKIN: Warm, dry, no rash. NEURO: No focal deficits. Alert and oriented x3 Course Vital Signs Vital signs: Vital Signs Temperature 97.3 F L 12/15/23 11:54 Pulse Rate 60 12/15/23 11:54 Respiratory Rate 18 12/15/23 11:54 Blood Pressure 129/80 12/15/23 11:54 Pulse Oximetry 99 12/14
[2023-12-15 14:09] LABS: Basophils Absolute Auto 0.1 K/mm3 (0.0-0.1); Basophils Percent Auto 0.9 % (0.2-1.2); Eosinophils Absolute Auto 0.2 K/mm3 (0-0.3); Eosinophils Percent Auto 3.3 % (0-4.4); Hemoglobin 15.1 g/dL (14.0-18.0); Immature Granulocyte Absolute 0.02 K/mm3 (0.00-0.031); Immature Granulocyte Percent A 0.3 % (0-0.5); Lymphocytes Absolute Auto 3.02 K/mm3 (0.9-3.2); Lymphocytes Percent Auto 43.3 % (18.3-44.2); Mean Corpuscular HGB Conc 34.3 g/dl (32-36); Mean Corpuscular Hemoglobin 28.9 pg (26-34); Mean Corpuscular Volume 84.3 fl (80-100); Mean Platelet Volume 10.6 fl (7.4-10.4); Monocytes Absolute Auto 0.6 K/mm3 (0.1-0.6); Monocytes Percent Auto 8.5 % (2.6-8.5); Neutrophils Absolute Auto 3.1 K/mm3 (1.3-6.7); Neutrophils Percent Auto 43.7 % (45.5-73.1); Platelet Count Result 259 k/mm3 (150-375); Red Blood Count 5.22 M/mm3 (4.6-6.20); Red Cell Distribution Width 11.9 % (11.5-14.5)
[2023-12-15 14:13] LABS: Add Urine Microscopic? NO; Appearance Urine Clear (Clear); Bilirubin Urine Negative (Negative); Blood Urine Negative (Negative); Color Urine Yellow (Yellow); Glucose Urine UA Negative (Negative); Ketones Urine Trace mg/dL (Negative); Leukocyte Esterase Ur Negative LEU/UL (Negative); Nitrate Urine Negative (Negative); Protein Urine Negative (Negative); Specific Grav Ur 1.027 (1.001-1.035); pH Urine 6.5 (5.0-9.0)
[2023-12-15 14:16] LABS: Anion Gap 9 mmol/L (4-12); Blood Urea Nitrogen 16 mg/dL (9-20); Calcium 9.6 mg/dL (8.4-10.2); Carbon Dioxide 28 mmol/L (22-30); Chloride 102 mmol/L (98-107); Estimated CRCL calculation 91 ml/min; Estimated Glomerular Filt Rate > 60; Glucose 97 mg/dL (65-110); Potassium 3.8 mmol/L (3.4-5.0); Sodium 139 mmol/L (137-145)
== END 2023-12-15 15:12 | disposition home or self-care (01) ==
PROVIDERS: Emergency Provider Physician Assistant; PCP Internal Medicine
DX: K40.90 Unilateral inguinal hernia, without obstruction or gangrene, not specified as recurrent (principal); E66.9 Obesity, unspecified; Z68.34 Body mass index [BMI] 34.0-34.9, adult; G47.30 Sleep apnea, unspecified
CPT/HCPCS: 36415; 76870; 80048; 81003; 85025; 93976; 99284

== ENCOUNTER 2024-01-20 10:05 | Outpatient (CLI) | payer OTHER, SELFPAY ==
--- NOTE | ~2024-01-20 | CT_ITS ---
EXAMINATION: CT pelvis wo con DATE: 01/20/2024 10:21 INDICATION: Left lower quadrant abdominal pain. TECHNIQUE: Computed tomography (CT) of the pelvis was performed without intravenous contrast. Automat ed exposure control and iterative reconstruction technique were employed. The dose-length product was 677.60 mGy-cm. COMPARISON: None FINDINGS: There are no dilated loops of bowel. The appendix is normal. There is diverticulosis of the colon without evidence of diverticulitis. There are no pathologically enlarged lymph nodes. There is no free intraperitoneal fluid. There are benign bone islands in the pelvis. There is mild osteoarthr itis of the hips. IMPRESSION: 1. No specific etiology for the patient's symptoms. Reviewed, dictated and finalized at location B.
== END 2024-01-20 10:06 | disposition home or self-care (01) ==
LOC: MICIMG 10:06
PROVIDERS: PCP Internal Medicine; Visit Provider Surgery
DX: R10.32 Left lower quadrant pain (principal)
CPT/HCPCS: 72192

== ENCOUNTER 2024-07-26 14:59 | Emergency (ER) | payer OTHER, SELFPAY ==
--- NOTE | 2024-07-26 15:01 | ED.EXTPRO ---
HPI - Extremity Problem General Chief complaint: Skin/Abscess/Foreign Body Stated complaint: something in right elbow Time Seen by Provider: 07/26/24 15:00 Source: patient Mode of arrival: ambulatory Limitations: no limitations History of Present Illness HPI Narrative: Julio is a 31-year-old male patient presenting to the clinic today with complaints of a puncture wound possible foreign body in his right elbow. He reports he was walking out in a wooded area and a throne like branch poked him in the right elbow. Has a raised puncture wound to the right elbow. This occurred 3 weeks ago. Denies any fevers, redness, swelling, or increase in pain. States he has been picking at it but cannot find anything in the skin. Tetanus is unknown. Requesting a tetanus injection in the clinic today. Related Data Home Medications ?Medication ?Instructions ?Recorded ?Confirmed ?Last Taken ?Type No Home Medications 07/26/24 07/26/24 Unknown History Allergies Allergy/AdvReac Type Severity Reaction Status Date / Time No Known Allergies Allergy Verified 07/26/24 15:13 Review of Systems Review of Systems: Pertinent positives per HPI. Patient denies any fever, chills, rash, headache, visual changes, dizziness, cough, runny nose, sore throat, shortness of breath, chest pain, palpitations, nausea, vomiting, diarrhea, constipation, abdominal pain, or any urinary issues. [facility] Past Medical History Medical History Left inguinal hernia Obesity (BMI 30-39.9) Anxiety Narcolepsy Narcolepsy BMI 32.0-32.9,adult Sleep apnea uses CPAP at night Surgical History Surgical History H/O inguinal hernia repair laparoscopic left inguinal hernia repair w/mesh, daVinci assisted 03/04/22 No significant past surgical history Family History Family History Grandparent Family history of coronary artery disease Malignant neoplasm of prostate Other Malignant neoplasm of prostate Father Thrombosis bilateral legs prior to COVID Kidney stones Social History Social History Social History: with 4 kids; Grady Grigsby, Faye and [place]; loves his job at the [employer], works rotating shifts over 4 weeks. Caffeine-minimum 1 cup daily, anywhere from 12oz- 1 Liter - soda/tea/coffee Smoking status: Never smoker Alcohol intake: never Substance use: never Substance use type: does not use Do You Feel Safe in your Home?: Yes Lack of Transportation: No Lack of Food: Never True Current Housing: I Have Housing Concerned About Future Housing: No Difficulty Paying Gas/Electric Bills: No Difficulty Paying for Meds: No Currently Unemployed: No Education: Bachelor's Degree Difficulty w/ Childcare or Family Care: No Living arrangements: with family Additional living arrangements comments: Patient is with 4 children Occupation/Education: occupation 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 There is no relevant family history pertinent to the patient complaint. Exam Narrative: General: Well-developed, well nourished, in no apparent distress Head: Normocephalic, atraumatic. Cardio: Regular rate and rhythm, s1 and s2 normal, no murmur appreciated. Resp: Clear to auscultation bilaterally, no rhonchi, rales, wheezing or rubs. Integumentary: Dewar, warm, and dry, puncture wound to the right posterior elbow without obvious foreign body visualized. Mild redness and induration without tenderness, erythema, or purulent discharge. Course Course Emergency Course: Portions of this record may have been created with voice recognition software. Level of Care: Express Care Visit Vital Signs Vital signs: Vital Signs Temperature 36.9 C 07/26/24 15:05 Pulse Rate 77 07/26/24 15:05 Respiratory Rate 16 07/26/24 15:05 Blood Pressure 135/85 07/26/24 15:05 Pulse Oximetry 100 07/26/24 15:05 Temperature 36.9 C 07/26/24 15:05 Pulse Rate 77 07/26/24 15:05 Respiratory Rate 16 07/26/24 15:05 Blood Pressure 135/85 07/26/24 15:05 Pulse Oximetry 100 07/26/24 15:05 Vital signs reviewed MDM - Extremity (Nontraumatic) MDM Narrative Medical decision making narrative: At the time of visit patient is resting comfortably on the exam table. Patient appears to be nontoxic. Plan: I suspect patient has a nonhealing puncture wound due to patient constantly messing and picking at it. No obvious sign of foreign body in the clinic today. Tetanus shot updated per patient's request. Supportive measures were discussed with the patient and they voiced understanding discharge instructions and agrees to treatment plan. Return precautions reviewed Differential Diagnosis Differential diagnosis: Likely cellulitis and other (Soft tissue foreign body, puncture wound, wound infection) Discharge Plan Discharge Clinical Impression: Puncture wound Patient Disposition: Home Condition: Stable Instructions: Antibiotic Form, Puncture Wound (ED) Additional Instructions: Tdap given in the clinic today No sign of bacterial infection No obvious foreign body visualized under the skin Keep area clean and dry Avoid picking at the area May take Tylenol/Motrin as needed for pain Patient Language: Divehi Prescriptions: No Action No Home Medications Follow-up/Referrals: Bob Mejía DO [Primary Care Provider] - Time of Disposition: 15:15 Quality NIHSS Nursing Documentation ED NIHSS nursing documentation: reviewed/agree
[2024-07-26 15:05] VITALS: BP 135/85; PULSE 77; RESP 16; TEMP 36.9; O2SAT 100
[2024-07-26] MEDS: TETANUS,DIPHTHERIA,AC PERTUSSIS ADULT (0.5 ML) BOOSTRIX IM (15:31)
== END 2024-07-26 15:40 | disposition home or self-care (01) ==
PROVIDERS: Emergency Provider Nurse Practitioner Family; PCP Internal Medicine
DX: S51.031A Puncture wound without foreign body of right elbow, initial encounter (principal); W60.XXXA Contact with nonvenomous plant thorns and spines and sharp leaves, initial encounter; Z23 Encounter for immunization; G47.30 Sleep apnea, unspecified; E66.9 Obesity, unspecified; Z68.34 Body mass index [BMI] 34.0-34.9, adult
CPT/HCPCS: 90471; 90715; 99212; G0463

== ENCOUNTER 2025-01-27 19:05 | Emergency (ER) | payer OTHER, SELFPAY ==
--- OUTSIDE RECORDS SUMMARY | 2018-10-26 05:20 | XMS_ITS | Continuity of Care Document ---
Author Organization [facility] Address [address] [place] [address] Phone Care Team Providers Care Student Affairs Dean Name Role Phone Jim Larkin Unavailable Unavailable Procedures Procedure Date Therapeutic Exercise Therapeutic Activities Neuromuscular Re-Ed PT Evaluation Moderate Complexity Therapeutic Exercise Therapeutic Activities Neuromuscular Re-Ed Advance Directives Directive Yes / No Effective Date File Name No Information Encounters Encounter Description Practice Location Reason(s) For Visit Diagnoses Date Provider Providers Copied on Encounter [facility], [address] [address], [place], [place], [id number], tel:[phone] [place] No Information 9 Liliana Fernandez. [address], [facility], [place]. tel: [phone] [address] [facility], [place], [place], [id number], tel:[phone] [place] Pain in left kneePain in left shoulderMuscle weakness (generalized) 9 Liliana Fernandez. [address] [facility], [facility] [address], [place], [facility], [place]. tel:[phone] Referring Provider: Joshua Acuna, [address] [place] [address], [address]. tel:[phone] [facility] [address] [place], [place] [address], [place], [place], [id number], tel:[phone] [place] Pain in left kneePain in left shoulderMuscle weakness (generalized) 9 Liliana Ramírez [address] [facility], [address], [place], [address], [place]. tel:[phone] Referring Provider: Joshua Acuna, [address] [place] [address], [address]. tel:[phone] Family History Family Member Type Diagnosis Age At Onset No Information Payers Payer name Insurance type Covered libertarian ID Authororiana chapin(s) [facility] [id number] Social History Type Description Quantity Date Captured Comments Sex Male Smoking Status No Information Chief Complaint And Reason For Visit No Information Reason For Referral Reason For Referral No Information History Of Present Illness Encounter Date Complaint History Of Prese nt Illness No Information Functional Status Date Functional Assessmen t No Information Instructions Date Instruction Additional Infor mation No Information Assessments Type Assessment Date No Information Patient Care Teams Name Effective Dates (start - stop) Status Members No Information
[2025-01-27] VITALS (13 sets, daily range): BP systolic 131–136; BP diastolic 74–93; PULSE 89; RESP 18; TEMP 36.5; O2SAT 94–100
--- NOTE | ~2025-01-27 | CT_ITS ---
EXAMINATION: CT abdomen pelvis w con DATE: 01/27/2025 22:51 INDICATION: Abdominal pain. TECHNIQUE: Computed tomography (CT) of the abdomen and pelvis was performed with 100 mL Omnipaque 350 intravenous contrast. Automated exposure control and iterative reconstruction technique were employed. The dose-length product was 1177.34 mGy-cm. COMPARISON: CT pelvis 01/20/2024 FINDINGS: The visualized portions of the lung bases demonstrate mild atelectasis. Calcified right lung nodules and calcified right hilar lymph nodes are consistent with old granulomatous disease. No pleural effusion. The heart size is normal. No pericardial effusion. There is a 2.5 cm mass in right hepatic lobe with interrupted peripheral puddling of contrast, consistent with a hemangioma. There are 2 hypodense liver masses measuring up to 15 mm. The gallbladder, spleen, pancreas, adrenal glands, and left kidney are normal. There is a 10 mm cyst in right kidney. There is liquid stool in the colon suggesting diarrhea. The appendix is normal. There are no dilated loops of bowel. There are no pathologically enlarged lymph nodes. There is no free intraperitoneal fluid. There is mild thoracic and lumbar spondylosis. IMPRESSION: 1. Two nonspecific liver masses measuring up to 15 mm, which may be benign or less likely malignant. Consider abdomen MRI without and with contrast. Reviewed, dictated and finalized at location E. RDER GRAVITY PROSPECTING IMPRESSION: 1. Two nonspecific liver masses measuring up to 15 mm, which may be benign or l ess likely malignant. Consider abdomen MRI without and with contrast.
--- OUTSIDE RECORDS SUMMARY | 2025-01-27 19:07 | XMS_ITS | Clinical Summary ---
Author Organization [facility] Address [address] [facility], [place] [address] Phone Care Team Providers Care Mgmt Specialist Name Role Phone RcBob lobo Geovanny OQUENDO Primary Care Provider Allergies No known active allergies Medications HYDROcodone-acet aminophen (NORCO) 5-325 MG Tablet Take 1 Tab by mouth every 4 hours as needed for Pain. Active PENICILLIN V POTASSIUM PO Take by mouth. Active Active Problems Problem Noted Date Diagnosed Date Paronychia of third toe of right foot 07/06/2017 Pain of toe of right foot 07/06/2017 Family History Medical History Relation Name Comments Parkinsonism Maternal Grandmother Lung Cancer Paternal Grandfather Lung Cancer Paternal Grandmother Relation Name Status Comments Maternal Grandmother Paternal Grandfather Paternal Grandmother Social History Tobacco Use Types Packs/Day Years Used Date Smoking Tobacco: Never Smokeless Tobacco: Never Alcohol Use Standard Drinks/Week Comments No 0 (1 standard drink = 0.6 oz pur e alcohol) Sex and Gender Information Value Date Recorded Sex Assigned at Not on file Legal Sex Male 8:30 PM CDT Gender Identity Not on file Sexual Orientation Not on file Last Filed Vital Signs Vital Sign Reading Time Taken Comments Blood Pressure 135/86 07/05/2023 4:14 PM CDT Pulse 66 07/05/2023 4:14 PM CDT Temperature 37.3 C (99.1 F) 07/05/2023 4:14 PM CDT Respiratory Rate 16 07/05/2023 4:14 PM CDT Oxygen Saturation 97% 07/05/2023 4:14 PM CDT Inhaled Oxygen Concentration - - Weight 106.1 kg (234 lb) 07/05/2023 4:14 PM CDT Height 170.2 cm (5' 7) 07/05/2023 4:14 PM CDT Body Mass Index 36.65 07/05/2023 4:14 PM CDT Plan of Treatment Health Maintenance Due Date Last Done Comments Hepatitis C Virus (HCV) Screening 1986 TdaP Immunization 1986 Human Papillomavirus (HPV) Immunization (1 - 3-dose SCDM series) 2013 Influenza Immunization (#1) 2024 01/05/2017, 1 05/01/2002 SARS-COV-2 Immunization (3 - season) 2024 06/28/2020, 06/04/2020 Respiratory Syncytial Virus (RSV) Immunization (Adult) (1 - 1-dose 75+ series) 2061 Hepatitis B Immunization Completed 997, 08/01/1996, 07/01/1996 DTaP/Tdap/Td Immunization Discontinued 2000, 06/20/1991, 11/02/1987, Additional history exists Meningococcal Immunization (ACWY) Aged Out No longer eligible based on patient's age to complete this topic Pneumococcal Immunization Combined Aged Out No longer eligible based on patient's age to complete this topic Rotavirus Immunization Aged Out No lo nger eligible based on patient's age to complete this topic Insurance [facility] [place] [id number] Care Teams Mgmt Specialist Relationship Specialty Start Date End Date Bob Mejía DO [facility] [facility] [place] [address] PCP - General Internal Medicine 06/24/17
--- OUTSIDE RECORDS SUMMARY | 2025-01-27 20:37 | XMS_ITS | Clinical Summary ---
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 Gender Identity Not on file Sexual Orientation Not on file Plan of Treatment Health Maintenance Due Date Last Done Comments Annual Physical 1989 Hepatitis C 01/03/2004 DTaP, Tdap and Td Vaccines ( 1 - Tdap) 2005 Hepatitis B Vaccines (1 of 3 - 19+ 3-dose series) 2005 HPV Vaccines (1 - 3-dose SCD M series) 2013 COVID-19 Vaccine (2024-2 6 season) 2024 Influenza Adult (#1) 2024 Hepatitis A Vaccines Aged Out No long er eligible based on patient's age to complete this topic Meningococcal B Vaccine Aged Out No l onger eligible based on patient's age to complete this topic Meningococcal Vaccine Aged Out No ana paula blair eligible based on patient's age to complete this topic Pneumococcal Vaccine: Pediat rics (0 to 5 Years) and At-Risk Patients (6 to 49 Years) Aged Out No longer eligible b ased on patient's age to complete this topic RSV Immunizations Under 20 Months Aged Out No longer eligible based on patient's age to complete this topic
[2025-01-27 20:47] LABS: Hematocrit 50.4 % (42.0-52.0); Hemoglobin 16.9 g/dL (14.0-18.0); Immature Granulocyte Percent A 0.3 % (0-0.5); Lymphocytes Absolute Auto 3.03 K/mm3 (0.9-3.2); Mean Corpuscular HGB Conc 33.5 g/dl (32-36); Mean Corpuscular Hemoglobin 27.9 pg (26-34); Mean Corpuscular Volume 83.3 fl (80-100); Nucleated Red Blood Cells Absolute Auto 0.000 K/mm3 (0.0-0.012); Nucleated Red Blood Cells Perc 0.0 % (0.0-0.2); Platelet Count Result 340 k/mm3 (150-375); Red Blood Count 6.05 M/mm3 (4.6-6.20); White Blood Count 11.8 K/mm3 (4.5-10.0)
[2025-01-27 20:56] LABS: Alanine Aminotransferase 74 U/L (6-50); Albumin Level 5.3 g/dL (3.5-5.1); Alkaline Phosphatase 54 U/L (38-126); Anion Gap 13 mmol/L (4-12); Aspartate Amino Transferase 34 U/L (17-59); Bilirubin,Total 0.9 mg/dL (0.2-1.3); Blood Urea Nitrogen 21 mg/dL (9-20); Calcium 9.4 mg/dL (8.4-10.2); Carbon Dioxide 22 mmol/L (22-30); Chloride 104 mmol/L (98-107); Estimated CRCL calculation 85 ml/min; Estimated Glomerular Filt Rate > 60; Glucose 93 mg/dL (65-110); Lipase 46 U/L (23-300); Potassium 3.7 mmol/L (3.4-5.0); Sodium 139 mmol/L (137-145); Total Protein 8.9 g/dL (6.3-8.2)
[2025-01-27] MEDS: LACTATED RINGERS 1,000 ML 999 ML IV CONT (21:20)
[2025-01-27 21:34] LABS: Add Urine Microscopic? YES; Appearance Urine Cloudy (Clear); Glucose Urine UA Negative (Negative); Leukocyte Esterase Ur Negative LEU/UL (Negative); Need Manual Microscopic Reviewed; Nitrate Urine Negative (Negative); Specific Grav Ur 1.033 (1.001-1.035)
[2025-01-27] MEDS: diazePAM INJ (*CRX) 10 MG/2 ML SYRINGE 5 MG IV PUSH (21:44)
--- NOTE | 2025-01-27 21:46 | PC.NURSE ---
Pt called out c/o anxiety and shaking. Pt visibly shaking and shivvering, however pt stated that I am not even cold. Provider notified
[2025-01-27] MEDS: ONDANSETRON INJ 4 MG/2 ML VIAL IV PUSH (22:02)
[2025-01-27] MEDS: FAMOTIDINE 20 MG/2 ML VIAL IV PUSH (22:02)
--- NOTE | 2025-01-27 22:06 | ED.NAVMDI ---
HPI - Nausea/Vomiting/Diarrhea General Chief complaint: Nausea/Vomiting/Diarrhea Stated complaint: n/v Time Seen by Provider: 01/27/25 20:11 Source: patient Mode of arrival: ambulatory Limitations: no limitations History of Present Illness HPI Narrative: This is a 40-year-old male that presents to the emergency department for abdominal discomfort. Reports he received his 1st dose of Tirzepatide on Wednesday. Since he has had reflux, abdominal discomfort, diarrhea. Also reports a GI bug is going around his family. Denies fevers. Related Data Allergies Allergy/AdvReac Type Severity Reaction Status Date / Time No Known Allergies Allergy Verified 12/27/24 08:31 Review of Systems Review of Systems: All systems reviewed & are unremarkable except as noted in HPI and below PMFSH Past Medical History Medical History (Updated 01/27/25 @ 23:50 by Alisson Manzano PA-C) Left inguinal hernia Obesity (BMI 30-39.9) Anxiety Narcolepsy Narcolepsy BMI 32.0-32.9,adult Sleep apnea uses CPAP at night Surgical History Surgical History History of nasal surgery H/O inguinal hernia repair laparoscopic left inguinal hernia repair w/mesh, daVinci assisted 03/04/22 No significant past surgical history Family History Family History Grandparent Family history of coronary artery disease Malignant neoplasm of prostate Other Malignant neoplasm of prostate Father Thrombosis bilateral legs prior to COVID Kidney stones Social History Social History Social History: with 4 kids; Calista, Grady, Faye and [place]; loves his job at the [employer], works rotating shifts over 4 weeks. Caffeine-minimum 1 cup daily, anywhere from 12oz- 1 Liter - soda/tea/coffee Alcohol intake: never Substance use: never Substance use type: does not use Do You Feel Safe in your Home?: Yes Lack of Transportation: No Lack of Food: Never True Current Housing: I Have Housing Concerned About Future Housing: No Difficulty Paying Gas/Electric Bills: No Difficulty Paying for Meds: No Currently Unemployed: No Education: Bachelor's Degree Difficulty w/ Childcare or Family Care: No Living arrangements: with family Additional living arrangements comments: Patient is with 4 children Occupation/Education: occupation 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 HEAD: Normocephalic, atraumatic. EYES: EOMI. CHEST: Clear to auscultation. No respiratory distress. No wheezes rales or rhonchi HEART: Regular rate and rhythm. No murmur heard. Normal peripheral pulses. ABDOMEN: Soft, nondistended, normal active bowel sounds. Mild tenderness to palpation in the epigastrium, without guarding EXTREMITIES: Normal range of motion. No edema. SKIN: Warm, dry, no rash. NEURO: No focal deficits. Alert and oriented x3. PSYCH: Normal mood and affect Course Vital Signs Vital signs: Vital Signs Temperature 97.7 F 01/27/25 19:21 Pulse Rate 89 01/27/25 19:21 Respiratory Rate 18 01/27/25 19:21 Blood Pressure 131/87 01/27/25 19:21 Pulse Oximetry 99 01/27/25 19:21 Oxygen Delivery Room Air 01/27/25 19:21 Temperature 97.7 F 01/27/25 19:21 Pulse Rate 89 01/27/25 19:21 Respiratory Rate 18 01/27/25 19:21 Blood Pressure 132/74 01/27/25 22:15 Pulse Oximetry 95 01/27/25 22:15 Oxygen Delivery Room Air 01/27/25 19:21 MDM - Nausea/Vomiting/Diarrhea MDM Narrative Medical decision making narrative: Patient presents emergency department for abdominal discomfort, nausea and vomiting after recently starting Tirzepatide. He is afebrile and nontoxic appearing. His vitals are stable. CBC with mild leukocytosis to 11.8. Metabolic panel with some evidence of dehydration. Patient hydrated with a L of IV fluids. Urine without evidence of infection. CT abdomen pelvis without acute findings. Patient updated on his workup. Instructed to have further follow-up with primary provider. He was given warnings to return to the ER Differential Diagnosis Differential diagnosis: Likely food poisoning, gastroenteritis, drug-induced nausea and vomiting and dehydration Lab Data Attestation: I reviewed the patient's lab results. 01/27/25 20:39 01/27/25 20:39 Labs: Lab Results 01/27/25 01/27/25 Range/Units 20:39 21:04 WBC 11.8 H (4.5-10.0) K/mm3 RBC 6.05 (4.6-6.20) M/mm3 Hgb 16.9 (14.0-18.0) g/dL Hct 50.4 (42.0-52.0) % MCV 83.3 (80-100) fl MCH 27.9 (26-34) pg MCHC 33.5 (32-36) g/dl RDW 11.8 (11.5-14.5) % Plt Count 340 (150-375) k/mm3 MPV 10.1 (7.4-10.4) fl Immature Gran % (Auto) 0.3 (0-0.5) % Neut % (Auto) 60.6 (45.5-73.1) % Lymph % (Auto) 25.8 (18.3-44.2) % [place] % (Auto) 9.8 H (2.6-8.5) % Eos % (Auto) 2.9 (0-4.4) % Baso % (Auto) 0.6 (0.2-1.2) % Lymph # (Auto) 3.03 (0.9-3.2) K/mm3 [place] # (Auto) 1.2 H (0.1-0.6) K/mm3 Eos # (Auto) 0.3 (0-0.3) K/mm3 Baso # (Auto) 0.1 (0.0-0.1) K/mm3 Abs Immat Gran (auto) 0.04 H (0.00-0.031) K/mm3 Absolute Neuts (auto) 7.1 H (1.3-6.7) K/mm3 Absolute Nucleated RBC 0.000 (0.0-0.012) K/mm3 Nucleated RBC % 0.0 (0.0-0.2) % Sodium 139 (137-145) mmol/L Potassium 3.7 (3.4-5.0) mmol/L Chloride 104 (98-107) mmol/L Carbon Dioxide 22 (22-30) mmol/L Anion Gap 13 H (4-12) mmol/L BUN 21 H (9-20) mg/dL Creatinine 1.17 (0.7-1.3) mg/dL Estim Creat Clear Calc 85 ml/min Estimated GFR > 60 (59 - ) Glucose 93 (65-110) mg/dL Calcium 9.4 (8.4-10.2) mg/dL Total Bilirubin 0.9 (0.2-1.3) mg/dL AST 34 (17-59) U/L ALT 74 H (6-50) U/L Alkaline Phosphatase 54 (38-126) U/L Total Protein 8.9 H (6.3-8.2) g/dL Albumin 5.3 H (3.5-5.1) g/dL Lipase 46 (23-300) U/L Urine Color Dark yellow (Yellow) Urine Appearance Cloudy H (Clear) Urine pH 5.5 (5.0-9.0) Ur Specific Shade 1.033 (1.001-1.035) Urine Protein 1+ H (Negative) mg/dL Urine Glucose (UA) Negative (Negative) mg/dL Urine Ketones Trace H (Negative) mg/dL Ur Blood (Man) Negative (Negative) Urine Nitrate Negative (Negative) Urine Bilirubin Negative (Negative) Urine Urobilinogen 1.0 (<2.0) mg/dL Add Ur Microanalysis Reviewed Leukocyte Esterase Rfl Negative (Negative) JOYCELYN/UL Urine RBC 0-2 (0-2) /hpf Urine WBC 0-5 (0-3) /hpf Ur Squamous Epith Cells None seen (Few) /hpf Urine Bacteria None seen /hpf Urine Casts 11-20 Imaging Data Radiologist's impression: CT abdomen and pelvis: No acute findings Critical Care Time Critical Care Time Critical Care Time: No Discharge Plan Discharge Clinical Impression: Drug-induced nausea and vomiting Patient Disposition: Home Condition: Improved Instructions: Acute Nausea and Vomiting (ED), Abdominal Pain (ED) Additional Instructions: Return to the ER if you experience fever, abdominal pain with nausea and vomiting, you are unable to keep down liquids or solids, or any other symptoms that are concerning to you Small, frequent meals. Van diet. Remain well hydrated. Ondansetron as needed for nausea. Pepcid as needed for reflux Follow up with primary care doctor Patient Language: [place] Prescriptions: New ondansetron 4 mg tablet,disintegrating 4 mg PO Q8H PRN (Reason: nausea and vomiting) Qty: 14 0RF No Action alprazolam [Xanax] 0.25 mg tablet 0.25 mg PO DAILY PRN (Reason: anxiety) Qty: 30 1RF Zepbound 2.5 mg/0.5 mL pen injector 2.5 mg subcut WEEKLY Qty: 2 0RF Rx Instructions: for 4 weeks Follow-up/Referrals: Bob Mejía DO [Primary Care Provider, Internal Medicine]
--- NOTE | 2025-01-27 22:58 | PC.NURSE ---
Patient requesting ice chips. RN notified provider and we are waiting for scan to be read before we give anything PO.
[2025-01-28 00:03] VITALS: BP 119/81; PULSE 71; RESP 18; O2SAT 97
== END 2025-01-28 00:04 | disposition home or self-care (01) ==
PROVIDERS: Emergency Provider Physician Assistant; PCP Internal Medicine
DX: R11.2 Nausea with vomiting, unspecified (principal); T50.995A Adverse effect of other drugs, medicaments and biological substances, initial encounter; E66.9 Obesity, unspecified; Z68.34 Body mass index [BMI] 34.0-34.9, adult; G47.30 Sleep apnea, unspecified; F41.9 Anxiety disorder, unspecified; Z79.899 Other long term (current) drug therapy
CPT/HCPCS: 36415; 74177; 80053; 81001; 83690; 85025; 96361; 96374; 96375; 99284; J2405; J3360; J7120; Q9967

== ENCOUNTER 2025-03-19 00:03 | Emergency (ER) | payer OTHER, SELFPAY ==
--- OUTSIDE RECORDS SUMMARY | 2025-03-19 00:06 | XMS_ITS | Clinical Summary ---
Author Organization 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
[2025-03-19 00:07] VITALS: BP 154/91; PULSE 96; RESP 18; TEMP 36.6; O2SAT 100
--- OUTSIDE RECORDS SUMMARY | 2025-03-19 00:47 | XMS_ITS | Clinical Summary ---
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
[2025-03-19 01:32] LABS: Strep Group A RT-PCR DETECTED (Negative)
[2025-03-19 01:47] LABS: Influenza A QL RT-PCR Negative (Negative); Influenza B QL RT-PCR Negative (Negative); RSV RNA, RT-PCR Negative (Negative); SARS-CoV-2 RNA PCR Negative (Negative)
--- NOTE | 2025-03-19 01:48 | ED_ITS ---
HPI - URI/Sore Throat General Chief Complaint: Upper Respiratory Infection Stated Complaint: Sore throat, runny nose Time Seen by Provider: 03/19/25 00:12 History of Present Illness HPI Narrative: Patient is a 40-year-old male who presents to the ER with a 2 day history of sore throat and congestion. He reports 1 of his children currently has strep throat in 1 of his children recently had strep throat and the flu. Patient reports he believes he had a fever but has not taken his temperature at home. Prior to arrival patient reports his throat hurts so bad it was bring tears to his eyes. He has been taking Tylenol and ibuprofen for pain control. Patient denies any headache, cough, chest pain, or nausea/vomiting. He endorses history of hernia repair, nasal septum repair, and takes an injectable weight loss medication. Related Data Allergies Allergy/AdvReac Type Severity Reaction Status Date / Time No Known Allergies Allergy Verified 03/19/25 01:29 Review of Systems Review of Systems: All systems reviewed & are unremarkable except as noted in HPI and below PMFSH Past Medical History Medical History Left inguinal hernia Obesity (BMI 30-39.9) Anxiety Narcolepsy Narcolepsy BMI 32.0-32.9,adult Sleep apnea uses CPAP at night Surgical History Surgical History History of nasal surgery H/O inguinal hernia repair laparoscopic left inguinal hernia repair w/mesh, daVinci assisted 03/04/22 No significant past surgical history Family History Family History Grandparent Family history of coronary artery disease Malignant neoplasm of prostate Other Malignant neoplasm of prostate Father Thrombosis bilateral legs prior to COVID Kidney stones Social History Social History Social History: with 4 kids; Calista, Grady, Faye and [place]; loves his job at the [employer], works rotating shifts over 4 weeks. Caffeine-minimum 1 cup daily, anywhere from 12oz- 1 Liter - soda/tea/coffee Smoking status: Never smoker Alcohol intake: never Substance use: never Substance use type: does not use Lack of Transportation: No Lack of Food: Never True Current Housing: I Have Housing Concerned About Future Housing: No Difficulty Paying Gas/Electric Bills: No Difficulty Paying for Meds: No Currently Unemployed: No Education: Bachelor's Degree Difficulty w/ Childcare or Family Care: No Living arrangements: with family Additional living arrangements comments: Patient is with 4 children Occupation/Education: occupation 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 HEAD: Normocephalic, atraumatic. Significantly red and edematous throat and tonsils. No visible purulence drainage. NECK: Supple. No adenopathy, no masses. RESPIRATORY: Airway patent, respirations nonlabored. Clear to auscultation bilaterally, no rales, rhonchi, wheezing. CARDIOVASCULAR: Regular rate and rhythm without murmurs, rubs, or gallops. Peripheral pulses 2+ and equal bilaterally. ABDOMINAL: Soft, nontender, nondistended, no hepatosplenomegaly. Normoactive BS. MUSCULOSKELETAL: Moves all extremities. Strength/ROM intact without gross deformities. SKIN: Warm, dry, normal color. No rashes. NEURO: A&O X3. Speech clear. Cranial nerves II-XII intact. No ataxic movements. PSYCHIATRIC: Appropriate mood and affect. Normal interaction. Course Vital Signs Vital signs: Vital Signs Temperature 36.6 C 03/19/25 00:07 Pulse Rate 96 03/19/25 00:07 Respiratory Rate 18 03/19/25 00:07 Blood Pressure 154/91 H 03/19/25 00:07 Pulse Oximetry 100 03/19/25 00:07 Oxygen Delivery Room Air 03/19/25 00:07 Temperature 36.6 C 03/19/25 00:07 Pulse Rate 96 03/19/25 00:07 Respiratory Rate 18 03/19/25 00:07 Blood Pressure 154/91 H 03/19/25 00:07 Pulse Oximetry 100 03/19/25 00:07 Oxygen Delivery Room Air 03/19/25 00:07 [facility] Narrative Medical decision making narrative: Patient is a 40-year-old male who presents to the ER with a 2 day history of sore throat and congestion. He reports 1 of his children currently has strep throat in 1 of his children recently had strep throat and the flu. Patient reports he believes he had a fever but has not taken his temperature at home. Prior to arrival patient reports his throat hurts so bad it was bring tears to his eyes. He has been taking Tylenol and ibuprofen for pain control. Patient denies any headache, cough, chest pain, or nausea/vomiting. He endorses history of hernia repair, nasal septum repair, and takes an injectable weight loss medication. Labs Ordered: COVID/flu/RSV swab, strep swab Imaging Ordered: None necessary Medications Ordered: Patient declined Tylenol or ibuprofen. Amoxicillin p.o. Results: Patient swab was positive for strep Diagnosis: Strep throat Patient Education/Shared MDM: Results of lab work shared with patient. He reports he took both Tylenol and ibuprofen prior to coming to the emergency department. Patient reports his symptoms had decreased he has been here. He declines any more pain medication administration at this time. Patient strongly advised to maintain hydration status upon discharge and follow-up with his PCP in the next 2-3 days for re-evaluation. He will be discharged home with a prescription for amoxicillin. Strict return precautions provided. Patient verbalized understanding and is in agreement with plan. Vital signs stable at time of discharge. All questions answered. Differential Diagnosis Differential Diagnosis: Strep throat, COVID, influenza Lab Data MDM Lab Attestation statement: I personally reviewed the patient's lab results. Labs: Lab Results 03/19/25 Range/Units 01:02 Influenza A (RT-PCR) Negative (Negative) Influenza B (RT-PCR) Negative (Negative) RSV (RT-PCR) Negative (Negative) SARS-CoV-2 RNA (RT-PCR) Negative (Negative) Group A Strep (PCR) Detected A (Negative) Discharge Plan Discharge Clinical Impression: Strep pharyngitis Patient Disposition: Home Condition: Stable Instructions: Antibiotic Form, Strep Throat (ED) Additional Instructions: Please return to the ER with any worsening symptoms. Follow-up with primary care provider the next 2-3 days for re-evaluation. Take all medications as prescribed, including regularly scheduled medications. Complete your full dose of antibiotics. You may take Tylenol and/or ibuprofen for pain and fever contr ol. Patient Language: Tamaz[place] Prescriptions: New amoxicillin 500 mg capsule 500 mg PO Q12H Qty: 20 0RF No Action alprazolam [Xanax] 0.25 mg tablet 0.25 mg PO DAILY PRN (Reason: anxiety) Qty: 30 1RF ondansetron 4 mg tablet,disintegrating 4 mg PO Q8H PRN (Reason: nausea and vomiting) Qty: 14 0RF Zepbound 5 mg/0.5 mL pen injector 5 mg subcut WEEKLY Qty: 2 0RF Follow-up/Referrals: Ana Nathan APRN [Primary Care Provider, Internal Medicine] Stand Alone Forms: Work/School Release IP Time of Disposition: 01:55
[2025-03-19] MEDS: AMOXICILLIN 500 MG CAPSULE PO (02:13)
[2025-03-19 02:16] VITALS: RESP 20; O2SAT 98
== END 2025-03-19 02:17 | disposition home or self-care (01) ==
PROVIDERS: Emergency Provider Registered Nurse; PCP Nurse Practitioner
DX: J02.0 Streptococcal pharyngitis (principal); Z20.822 Contact with and (suspected) exposure to COVID-19; G47.30 Sleep apnea, unspecified; F41.9 Anxiety disorder, unspecified; Z79.899 Other long term (current) drug therapy
CPT/HCPCS: 87637; 87651; 99283; A9270